=== PATIENT | male | born 1980 | race Two or more races ===

== ENCOUNTER 2017-02-23 19:35 | Emergency (ER) | payer MEDICAID ==
[~2017-02-23] VITALS: Ht 167.6 cm; Wt 81.6 kg
[2017-02-23 22:20] VITALS: BP 132/69
== END 2017-02-23 23:24 | disposition home or self-care (01) ==
LOC: ER 19:45
DX: S92.414A Nondisplaced fracture of proximal phalanx of right great toe, initial encounter for closed fracture (principal); M25.512 Pain in left shoulder; V23.4XXA Motorcycle driver injured in collision with car, pick-up truck or van in traffic accident, initial encounter; Y93.89 Activity, other specified; Y92.89 Other specified places as the place of occurrence of the external cause; Y99.8 Other external cause status
CPT/HCPCS: 73030; 73660

== ENCOUNTER 2017-06-15 03:04 | Emergency (ER) | payer MEDICAID ==
[~2017-06-15] VITALS: Ht 167.6 cm; Wt 68.0 kg
[2017-06-15 03:13] VITALS: BP 139/73
[2017-06-15] MEDS ORDERED: TETRACAINE HCL 0.5% OPTH(EYE) SOLN 4ML EACHEYE ONE (06:45)
[2017-06-15] MEDS ORDERED: FLUORESCEIN SOD 1 MG TEST STRIP OP ONE (06:45)
[2017-06-15] MEDS ORDERED: TETRACAINE HCL 0.5% OPTH(EYE) SOLN 4ML ONE (06:46)
== END 2017-06-15 07:34 | disposition home or self-care (01) ==
LOC: ER 03:04
DX: S05.01XA Injury of conjunctiva and corneal abrasion without foreign body, right eye, initial encounter (principal); E66.9 Obesity, unspecified; Z68.24 Body mass index [BMI] 24.0-24.9, adult; W22.8XXA Striking against or struck by other objects, initial encounter; Y93.89 Activity, other specified; Y92.89 Other specified places as the place of occurrence of the external cause; Y99.8 Other external cause status